=== PATIENT | female | born 1980 | race Caucasian/White ===

== ENCOUNTER 2020-03-26 10:28 | Outpatient (CLI) | payer BC, SELFPAY ==
--- NOTE | ~2020-03-26 | MM_ITS ---
EXAMINATION: MM screening debbi BI w harish HISTORY: Screening mammogram TECHNIQUE: Craniocaudal and mediolateral oblique 3-D tomosynthesis images were obtained and synthetic 2-D images were generated. Bilateral rotated lateral cc views. CAD analysis was submitted and interp reted. COMPARISON: 10/27/2017 bilateral diagnostic digital mammogram and bilateral complete breast ultrasound BREAST PARENCHYMAL COMPOSITION: The breasts are extremely dense, which lowers the sensitivity of mamm ography. FINDINGS: Bilateral benign appearing axillary tail lymph nodes are noted. There is no evidence of alexys picious mass, calcification, or architectural distortion to suggest malignancy in either breast. Ther e has been no suspicious interval change. IMPRESSION: 1. No mammographic evidence of malignancy. 2. Recommend routine screening mammography in one year. BI-RADS Category 2: Benign finding(s). Reviewed, dictated and finalized at location A.
== END 2020-03-26 10:29 | disposition home or self-care (01) ==
LOC: ANHIMG 10:31
PROVIDERS: PCP Physician Assistant; Visit Provider Nurse Practitioner
DX: Z12.31 Encounter for screening mammogram for malignant neoplasm of breast (principal)
CPT/HCPCS: 77063; 77067

== ENCOUNTER 2021-04-08 09:03 | Outpatient (CLI) | payer BC, SELFPAY ==
--- NOTE | ~2021-04-08 | MM_ITS ---
EXAMINATION: MM screening debbi BI w harish HISTORY: Screening TECHNIQUE: Craniocaudal and mediolateral oblique 3-D tomosynthesis images were obtained and synthetic 2-D images were generated. CAD analysis was submitted and interpreted. COMPARISON: Comparison to multiple prior studies sequentially, with oldest reviewed study dated 03/2018. BREAST PARENCHYMAL COMPOSITION: The breasts are extremely dense, which lowers the sensitivity of mamm ography. FINDINGS: There is no evidence of suspicious mass, calcification, or architectural distortion to sugg est malignancy in either breast. There has been no suspicious interval change. IMPRESSION: 1. No mammographic evidence of malignancy. 2. Recommend routine screening mammography in one year. BI-RADS Category 1: Negative Reviewed, dictated and finalized at location A.
== END 2021-04-08 09:04 | disposition home or self-care (01) ==
LOC: ANHIMG 09:06
PROVIDERS: PCP Physician Assistant; Visit Provider Nurse Practitioner
DX: Z12.31 Encounter for screening mammogram for malignant neoplasm of breast (principal)
CPT/HCPCS: 77063; 77067

== ENCOUNTER 2022-05-19 09:29 | Outpatient (CLI) | payer BC, SELFPAY ==
--- NOTE | ~2022-05-19 | MM_ITS ---
EXAMINATION: MM screening debbi BI w harish HISTORY: Screening mammogram TECHNIQUE: Craniocaudal and mediolateral oblique 3-D tomosynthesis images were obtained and synthetic 2-D images were generated. Bilateral rotated lateral CC views. CAD analysis was submitted and interp reted. COMPARISON: 04/08/2021, 03/26/2020 bilateral screening mammogram examinations / bilateral diagnostic mammogram Bilateral complete breast ultrasound BREAST PARENCHYMAL COMPOSITION: The breasts are extremely dense, which lowers the sensitivity of mamm ography. FINDINGS: There is no evidence of suspicious mass, calcification, or architectural distortion to sugg est malignancy in either breast. There has been no suspicious interval change. IMPRESSION: 1. No mammographic evidence of malignancy. 2. Recommend routine screening mammography in one year. BI-RADS Category 1: Negative Reviewed, dictated and finalized at location A. UNITY REINVESTMENT ACT OFFICER
== END 2022-05-19 09:30 | disposition home or self-care (01) ==
PROVIDERS: PCP Physician Assistant; Visit Provider Nurse Practitioner
DX: Z12.31 Encounter for screening mammogram for malignant neoplasm of breast (principal)
CPT/HCPCS: 77063; 77067

== ENCOUNTER → 2022-05-24 08:45 | Outpatient (CLI) | payer BC, SELFPAY ==
--- NOTE | ~2022-05-24 | US_ITS ---
US abdomen complete DATE: 05/24/2022 09:08 INDICATION: Abdominal pain TECHNIQUE: Real-time and Doppler evaluation of the complete abdomen COMPARISON: None FINDINGS: Abdominal aorta is of normal caliber. Inferior vena cava is unremarkable. Normal splenic size. No pancreatic mass lesion or pancreatic duct dilatation. No gallstones or gallbladder wall thickening or abnormal pericholecystic fluid collection. Negative s onographic Frias's sign. The common bile duct measures 4.9 mm, normal. No hepatic space-occupying mass lesion. Normal hepatopedal portal venous flow direction. No pancreati c mass lesion or ductal dilatation. No renal mass lesion or hydronephrosis. IMPRESSION: No significant abnormality Reviewed, dictated and finalized at Location A. Reviewed, dictated and finalized at location A. TRONIC SYSTEM ENGINEER IMPRESSION: No significant abnormality
== END ==
PROVIDERS: PCP Physician Assistant; Visit Provider Physician Assistant
DX: R10.84 Generalized abdominal pain (principal)
CPT/HCPCS: 76700

== ENCOUNTER 2022-07-27 12:27 | Outpatient (CLI) | payer BC, SELFPAY ==
--- NOTE | ~2022-07-27 | MR_ITS ---
EXAMINATION: MR breast BI wo/w con INDICATION: Extremely dense breast tissue on mammogram, family history of breast cancer in her matern al grandmother TECHNIQUE: Axial VIBRANT pre and dynamic post contrast, Sagittal VIBRANT post contrast, Axial T2 STIR ASSET COMPARISON: None CONTRAST: Multihance, 14 cc BREAST COMPOSITION: Extreme fibroglandular tissue FINDINGS: RIGHT BREAST: There is moderate background parenchymal enhancement. No abnormal enhancement is presen t after contrast administration. Small cysts of the right breast measure up to 5 mm. No pathologicall y enlarged axillary or internal mammary lymph nodes are identified. LEFT BREAST: There is moderate background parenchymal enhancement. No abnormal enhancement is present after contrast administration. Small cysts of the left breast measure up to 4 mm. No pathologically enlarged axillary or internal mammary lymph nodes are identified. IMPRESSION: 1. Unremarkable breast MRI. Routine screening mammography is recommended. BI-RADS Category 2: Benign finding(s). Reviewed, dictated and finalized at location A. ESTIMATING CLERK
== END 2022-07-27 12:28 | disposition home or self-care (01) ==
PROVIDERS: PCP Physician Assistant; Visit Provider Obstetrics & Gynecology Gynecology
DX: R92.2 Inconclusive mammogram (principal)
CPT/HCPCS: 77049; A9577; C8908

== ENCOUNTER 2023-07-29 08:53 | Outpatient (CLI) | payer BC, SELFPAY ==
--- NOTE | ~2023-07-29 | MM_ITS ---
EXAMINATION: MM screening debbi BI w harish HISTORY: Screening TECHNIQUE: Craniocaudal and mediolateral oblique 3-D tomosynthesis images were obtained and synthetic 2-D images were generated. CAD analysis was submitted and interpreted. COMPARISON: Comparison to multiple prior studies sequentially, with oldest reviewed study dated 03/2018. BREAST PARENCHYMAL COMPOSITION: The breasts are extremely dense, which lowers the sensitivity of mamm ography FINDINGS: There is no evidence of suspicious mass, calcification, or architectural distortion to sugg est malignancy in either breast. There has been no suspicious interval change. IMPRESSION: 1. No mammographic evidence of malignancy. 2. Recommend routine screening mammography in one year. BI-RADS Category 1: Negative Reviewed, dictated and finalized at location A. HOUSE STOCK CLERK
== END 2023-07-29 08:54 | disposition home or self-care (01) ==
LOC: ANHIMG 08:56
PROVIDERS: PCP Physician Assistant; Visit Provider Nurse Practitioner
DX: Z12.31 Encounter for screening mammogram for malignant neoplasm of breast (principal)
CPT/HCPCS: 77063; 77067

== ENCOUNTER 2024-01-02 13:18 | Outpatient (CLI) | payer BC, OTHER, SELFPAY ==
--- NOTE | ~2024-01-02 | US_ITS ---
Ultrasound of the right axilla CLINICAL HISTORY: Right axillary pain TECHNIQUE: Sonographic imaging of the right axilla at the area of pain was performed. FINDINGS: No solid lesion or lymphadenopathy seen. No fluid collection or cystic lesion identified. N o sonographic abnormality seen in the right axilla. IMPRESSION: No sonographic correlate seen for the area of pain in the right axilla. Reviewed, dictated and finalized at location .
--- NOTE | ~2024-01-02 | MM_ITS ---
EXAMINATION: MM diagnostic debbi RT w harish HISTORY: Right axillary pain TECHNIQUE: 3-D tomosynthesis images of the right breast were performed and synthetic 2-D images were generated. CAD analysis was submitted and interpreted. COMPARISON: 07/29/2023, 05/19/2022, 04/08/2021 FINDINGS: Breast parenchyma is extremely dense, which lowers the sensitivity of mammography. Parenchymal patter n of the right breast is unchanged. No suspicious mass lesion, distortion, or microcalcifications see n. No suspicious interval change. IMPRESSION: No evidence for malignancy in the right breast. Right axillary ultrasound was performed at the area of pain, which is reported separately. BI-RADS Category 1: Negative Reviewed, dictated and finalized at location M.
== END 2024-01-02 13:19 | disposition home or self-care (01) ==
PROVIDERS: PCP Physician Assistant; Visit Provider Nurse Practitioner
DX: N64.4 Mastodynia (principal); M79.601 Pain in right arm
CPT/HCPCS: 76882; 77061; 77065; G0279

== ENCOUNTER 2024-09-20 14:57 | Outpatient (CLI) | payer BC, SELFPAY ==
--- NOTE | ~2024-09-20 | MM_ITS ---
EXAMINATION: MM screening debbi BI w harish HISTORY: Screening mammogram TECHNIQUE: Craniocaudal and mediolateral oblique 3-D tomosynthesis images were obtained and synthetic 2-D images were generated. CAD analysis was submitted and interpreted. COMPARISON: 01/02/2024, 07/29/2023, 05/19/2022, 04/08/2021, 03/26/2020 BREAST PARENCHYMAL COMPOSITION:Dense: The breasts are extremely dense, which lowers the sensitivity o f mammography. FINDINGS: No suspicious mass, calcification, or architectural distortion are identified in either rogelio ast to suggest malignancy. There has been no suspicious interval change. IMPRESSION: No mammographic evidence of malignancy. Recommend routine screening mammography in one year. BI-RADS Category 1: Negative Reviewed, dictated and finalized at location .
--- OUTSIDE RECORDS SUMMARY | 2024-09-20 16:47 | XMS_ITS | Data Portability ---
Author Organization [facility] Address [address] [place] [address] Care Team Providers Care Lump Maker Name Role Phone NICOLAS DELA CRUZ Primary Care Provider Unavailab le Assessment No assessment recorded. Plan of Treatment Reminders Order Date Submit Date Provider Last Modified By Organization Details Last Modified Time Details Appointments None recorde d. Lab TSH + free T4, serum 2023 024 [facility] [employer] [facility], [address] [place], [address], 4 10:11:12 lipid panel, serum [facility], [place], [address], 4 13:37:22 CMP, serum or plasma 2023 024 [facility] [employer] [facility], [place], [address], 4 13:37:33 CBC w/ auto diff 2023 024 [facility], [place], [address], 4 13:38:05 HbA1c (hemogl obin A1c), blood 2023 024 [facility], [place], [address], 4 13:37:50 Referral None recorde d. Procedures None recorde d. Surgeries None recorde d. Imaging None recorde d. Medication Orders escital opram 10 mg tablet 2023 024 [id number], [address], [place], [place], [phone], 4 16:49:58 Patient TargetsNo targets recorded. Patient Instructions Encounter Date Encounter Id Patient Instructions Last Modified By Organization Details Last Modified Time 05/29/2024 [id number] A healthy lifestyle: care instructions [email or web address] Not available 05/29/2024 16:49:47 Reason for Referral None Reported. Results Created Date Observation Date Name Description Value Unit Range Abnormal Flag Note LastModifiedBy Organization Detail LastModifiedTime Result Notes None recorded. Problems Name Problem SNOMED Code Status Onset Date Resolution Date Notes Provider Name and Address Organization Details Recorded Time Body mass index 25-29 - overweight 650356900 Active 2023 Maxim Rodrigues MA [facility], [place] - [facility] 4 16:13:24 Generalized anxiety disorder 87329145 Active 2023 BERNADINE Magana Attn: Jeannie adam,[address] [place], [address], [place] - [facility] 4 16:27:14 Long-term drug therapy Active 2023 BERNADINE Magana Attn: Jeannie adam,[address] [place], [address], [place] [facility] 4 16:27:21 Overweight 128230243 Active 2023 BERNADINE Magana Attn: Jeannie adam,[address] [facility], [place], [address], [place] [facility] 4 16:27:45 Positive screening for depression on PHQ-9 (Patient Health Questionnai re 9) 7940969295831 00 Active 2023 BERNADINE Magana Attn: Jeannie adam,[address] [facility], [place], [address], [facility] 4 21:39:43 Problem Notes None recorded. Procedures Surgical History Date Name Laterality Status Provider Name and Address Organization Details Recorded Time Tonsillectomy completed Maxim Rodrigues MA [facility] 05/29/2024 15:58:56 Imaging Results None recorded. Procedure Notes None recorded. Medical Equipment None Reported. Allergies No known drug allergies Medications Name Sig Start Date Stop Date Status Note LastModified by Organization Details LastModified Time drospirenone 3 mg-ethinyl estradiol 0.03 mg tablet Take by oral route for 28 days. active Not Available Not Available No t Available escitalopram 10 mg tablet One tab p.o. daily 024 active Not Available Not Available Not Avai lable Vitals Date Recorded Body weight Respiratory rate Body mass index (BMI) Body height Oxygen saturation Oxygen saturation in Arterial blood by Pulse oximetry Heart rate Systolic blood pressure Diastolic blood pressure Provider Name and Address Organization Details Last Updated DateTime 4 26143.7 4 g 18 /min 25.8 kg/m2 170.18 cm 97 % 97 % 94 /min 126 mm[Hg] 82 mm[Hg] Maxim Rodrigues MA [facility] 16:19:23 Date Recorded Systolic blood pressure Diastolic blood pressure Provider Name and Address Organization Details Last Updated DateTime 05/29/2024 124 mm[Hg] 90 mm[Hg] BERNADINE Magana Attn: Accounting,[address] [facility], [place], [address], [facility] 06/09/2024 21:39:08 Social History Question Answer Notes LastModified by Organizat ion Details LastModified Time Tobacco Smoking Status Former Smoker quit 20 + years ago Maxim Rodrigues MA [facility], [facility] 05/29/2024 16:15:54 Do You Have An Advance Directive? No Information not available 05/29/2024 What Is Your Level Of Alcohol Consumption? Occasional Information not available 05/29/2024 Are You Blind Or Do You Have Difficulty Seeing? No Glasses Information not available 05/29/2024 What Is Your Level Of Caffeine Consumption? Moderate Information not available 05/29/2024 In The 14 Days Before Symptom Onset, Have You Had Close Contact With A Laboratory-confir med COVID-19 While That Case Was Ill? No Information not available 05/29/2024 In The 14 Days Before Symptom Onset, Have You Had Close Contact With A Person Who Is Under Investigation For COVID-19 While That Person Was Ill? No Information not available 05/29/2024 Have You Been To An Area Known To Be High Risk For COVID-19? No Information not available 05/29/2024 Are You Currently Employed? Yes Information not available 05/29/2024 Are You Deaf Or Do You Have Serious Difficulty Hearing? No Information not available 05/29/2024 What Type Of Diet Are You Following? REGULAR Information not available 05/29/2024 Are There Any Guns Present In Your Home? No Information not available 05/29/2024 What Was The Date Of Your Most Recent Tobacco Screening? 05/29/2024 Information not available 05/29/2024 What Is Your Current Pack Years? 20-29packyear s Information not available 05/29/2024 What Is Your Relationship Status? Single Information not available 05/29/2024 Do You Use Your Seat Belt Or Car Seat Routinely? Yes Information not available 05/29/2024 Do You Have Smoke And Carbon Monoxide Detectors In Your Home? Yes Information not available 05/29/2024 How Much Tobacco Do You Smoke? No Information not available 05/29/2024 Do You Feel Stressed (tense, Restless, Nervous, Or Anxious, Or Unable To Sleep At Night)? OD8715-3 Information not available 05/29/2024 Do You Use Any Illicit Or Recreational Drugs? No Information not available 05/29/2024 Do You Use Sunscreen Routinely? Yes Information not available 05/29/2024 Has Tobacco Cessation Counseling Been Provided? No Information not available 05/29/2024 Do You Or Have You Ever Used Any Other Forms Of Tobacco Or Nicotine? No Information not available 05/29/2024 Sex: Female Functional Status Question Answer Note LastModified by Organization D etails LastModified Time Are you able to care for yourself? Yes Information n ot available 05/29/2024 What is your exercise level? None Information not available 05/29/2024 Mental Status None recorded. Family History Relationship Description Onset Age of this Age Resolved Age Notes LastModified by Organization Details LastModified Time Father Heart disease [email or web address] Not available 2023 15:59:18 Father Hypertensive disorder tcarterma Not available 2023 15:59:25 Father Hypercholest erolemia tcarterma Not available 2023 15:59:31 Mother Hypertensive disorder tcarterma Not available 2023 15:59:25 Mother Hypercholest erolemia tcarterma Not available 2023 15:59:31 Medical History Condition Response Coronary Artery Disease N Other N Atrial Fibrillation N High Blood Pressure N Depression N COPD N Blood Clots N Anxiety Disorder Y Muscle, Joint, or Bone Problems N Acid Reflux (GERD) N Cancer N Stroke N High Cholesterol N Liver Disease N Headaches N Kidney or Bladder Problems N Thyroid Problems N GI Problems N Have you had a mammogram in the last yea r? N Skin Problems N Anemia N Heart Attack ([place]) N Diabetes N Seizures/Epilepsy N Have you had a colonoscopy in the last 1 0 years? N Asthma N Allergies N Have you had a PSA blood test in the las t year? N Hepatitis N Heart Failure N Osteoporosis N Gynecological History Statement/Question Response Menses Monthly Y Duration of Flow (days) Current Control Method BCPs Date of LMP 04/24/2024 LMP Approximate Obstetrics History GPAL:G 2 P 2 0 0 2 Type Value Full Term 2 Induced 0 Spontaneous 0 Premature 0 Living 2 Total 2 Immunizations Vaccine Type Date Status Note Provider Nam e and Address Organization Details Recorded Time Influenza, MDCK, quadrivalent, PF 04/11/2023 completed Maxim Rodrigues [place] null, [place] [facility] 05/29/2024 16:16:03 Influenza, MDCK, quadrivalent, PF 04/27/2022 completed Maxim Rodrigues [place], [place] [facility] 05/29/2024 16:16:03 Influenza, MDCK, quadrivalent, PF 06/02/2019 completed Maxim Rodrigues [place], [place] [facility] 05/29/2024 16:16:03 COVID-19, mRNA, LNP-S, PF, 30 mcg/0.3 mL dose 09/11/2020 completed DAVID Shearer, [place] [facility] 05/29/2024 16:16:03 COVID-19, mRNA, LNP-S, PF, 30 mcg/0.3 mL dose 10/02/2020 completed Maxim Rodrigues [place], [place] [facility] 05/29/2024 16:16:03 COVID-19, mRNA, LNP-S, PF, 30 mcg/0.3 mL dose 04/27/2021 completed DAVID She[place] [facility] 05/29/2024 16:16:03 COVID-19, mRNA, LNP-S, bivalent, PF, 50 mcg/0.5 mL or 25mcg/0.25 mL dose 05/24/2022 completed Maxim Rodrigues [place], [place] [facility] 05/29/2024 16:16:03 COVID-19, mRNA, LNP-S, PF, abigail-sucrose, 30 mcg/0.3 mL 04/01/2023 completed Maxim Rodrigues [place] [facility] 05/29/2024 16:16:03 COVID-19, mRNA, LNP-S, PF, abigail-sucrose, 30 mcg/0.3 mL 04/23/2024 completed Maxim Rodrigues [place] [facility] 05/29/2024 16:16:03 Influenza, split virus, trivalent, PF 04/09/2024 completed Maxim Rodrig[place] [facility] 05/29/2024 16:16:03 Influenza, split virus, trivalent, PF 06/27/2015 completed Maxim Rodrig[place] [facility] 05/29/2024 16:16:03 Past Encounters Encounter ID Performer Location Encounter Start Date Encounter Closed Date Diagnosis/Indication Diagnosis SNOMED-CT Code Diagnosis ICD10 Code Diagnosis Note [id number] BERNADINE Magana [facility] [address] [place] [address] 05/29/2024 15:47:30 05/29/2024 16:51:48 Body mass index 25-29 - overweight 435883523 Z68.25 BMI is 25.8 Overweight 810169244 E66 .3 Adult heal th examination 299466220 Z00.00 Annual wellness exam complete Generalize d anxiety disorder 79868941 F41.1 Refill Lexapro 10 mg daily which is managing her anxiety well. No complaints or concerns Long-term drug therapy 713721723 Z79.891 All fasting labs were ordered Cholesterol screening 27 8100201 Z13.220 Diabetes m ellitus screening 829798127 Z13.1 Thyroid di sorder screening 222881719 Z13.29 Positive s creening for depression on PHQ-9 (Patient Health Questionnaire 9) 3395615974 96657 Z13.31 Patient scored a 10 on screening today. She is on Lexapro 10 mg daily and is pleased with the efficacy from this medication and has no additional concerns or questions, she feels stable. Health Concerns Section Related Observation LastModified by Organization Detai ls LastModified Time None Recorded Concern Status LastModified by Organization Details LastModified Time None Recorded Advance Directives Directive N: Payers Encounter Date Sequence Insurance Name Policy Number Policy Aj Covered Member ID Aj Member ID Guarantor Name 05/29/2024 1 [place]: (PPO) [id number] Dave Lopez [id number] Dave Lopez Notes Date Note Type Note Provider Name and Address Organization Details Recorded Time 05/29/2024 text/html Anxiety/Depressi on Reported bypatient.Quality: symptoms improved Severity:denies suicidal ideations; able to maintain relationships; does not interfere with activities of daily living Duration:stablizin g Context:no major life stressors Modifying Factors:medication s as directed Associated Symptoms:denies homicidal ideations; no significant weight gain; no significant weight loss; mood good; no panic; no isolation; sleeping well; appetite good; energy good; no apathy; maintaining functionality;anxi ety Patient is here for her annual wellness exam and routine labs to be ordered BERNADINE Magana Attn: Accounting,[address], [place], [address], [facility] 06/09/2024 21:40:01 OBGyn Episode No OBEpisode recorded.
--- OUTSIDE RECORDS SUMMARY | 2024-09-20 16:48 | XMS_ITS | Patient Health Summary ---
Author Organization [facility] Address [address] [place] [address] Care Team Providers Care Cane Piler Name Role Phone Unavailable Primary Care Provider Unavailabl e Note from [facility],non-owned Affiliates and Associated Physician Practices is amultiple site organization consisting of ambulatory clinics and hospital sitesin [place], [place], [place] and [place]. This disclosure is being madepursuant to the Care Everywhere program and may not contain all information available regarding this patient. Last updated 18.[facility] Spreedly Social History Tobacco Use Types Packs/Day Years Used Date Smoking Tobacco: Never Assessed Sex and Gender Information Value Date Recorded Sex Assigned at Not on file Gender Identity Not on file Sexual Orientation Not on file Procedures * DERMATOPATHOLOGY(Performed 08/13/2024) Results * DERMATOPATHOLOGY (08/13/2024 9:40 AM DIGITAL SALES PLANNER) Case Report Dermatopathology Report Case: [id number] Authorizing Provider: Henny Mitchell DO Collected: 08/13/2024 09:40 AM Ordering Location: [facility] - Received: 08/13/2024 04:10 PM DermPath Lab Pathologist: Soledad Guzman MD Specimen: Skin, right chest 4:52 PM DIGITAL SALES PLANNER DERMATOPATHOLOGY LABORATORY Final Diagnosis Specimen A. SKIN, right chest: BASAL CELL CARCINOMA, NODULAR TYPE (C44.519) 4:52 PM [employer] SALES [employer]NER DERMATOPATHOLOGY LABORATORY Clinical History LPLK R/O BCC 4:52 PM DIGITAL SALES PLANNER DERMATOPATHOLOGY LABORATORY Gross Description Specimen A: Received is one formalin filled container labeled with the patient's name and designated right chest. The specimen consists of a shave biopsy measuring 4x3x1 mm. Jar 0. 4:52 PM [facility] DERMATOPATHOLOGY LABORATORY Microscopic Description Specimen A. SKIN, right chest: Within the dermis there are aggregates of basaloid cells with a high nuclear to cytoplasmic ratio and peripheral palisading. 4:52 PM [facility] DERMATOPATHOLOGY LABORATORY Disclaimer An external and internal positive and negative controls are appropriate for the histochemical, immunohistochemical and immunofluorescence stain(s) in this case (if any), except where stated explicitly. The performance characteristics of the stain(s) cited in this report were developed and its performance characteristic determined by the Dermatopathology Laboratory at [facility], directed by Dr. Kathy Boyd. These tests need not be, and therefore are not, approved by the [place] Food and Drug Administration. The tests are used for clinical purposes. Billing Codes Specimen Charges Stain Charges 24861 1 4:52 PM [facility] DERMATOPATHOLOGY LABORATORY Embedded Images 4:52 PM [facility] DERMATOPATHOLOGY LABORATORY Pathology/Cytolo gy TISSUE SPECIMEN FROM SKIN / Unknown 08/13/2024 9:40 AM DIGITAL SALES PLANNER 08/13/2024 4:10 PM [facility] Henny Mitchell DO LAB - PATHOLOGY/C YTOLOGY ORDERABLES DERMATOPATHOLOGY LABORATORY [facility] - Department of Dermatology [facility] Medicine [address] [place] [address], [address] [phone]
--- OUTSIDE RECORDS SUMMARY | 2024-09-20 16:48 | XMS_ITS | Clinical Summary ---
Author Organization [facility] Address [address] [address] Phone Care Team Providers Care Conference Services Coordinator Name Role Phone Nanette Sales Primary Care Pr ovider Allergies No known active allergies Medications escitalopram (LEXAPRO) 10 mg tablet TK 1 T PO HS 01/11/2020 Active Rosario 3-0.03 mg per tablet TK 1 T PO QD 01/06/2020 Active albuterol HFA (PROVENTIL HFA,VENTOLIN HFA,PROAIR HFA) 90 mcg/actuation inhaler Inhale 2 puffs every 6 (six) hours as needed Active SUMAtriptan (IMITREX) 100 mg tablet Take 100 mg by mouth once as needed Active cetirizine (ZyrTEC) 10 mg tablet Take 10 mg by mouth daily Active Active Problems Problem Noted Date Diagnosed Date 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 (10/13/2016): Erythema Nodosum Splenomegaly 11/24/2013 Overview (10/13/2016): Splenomegaly Atopic rhinitis 11/24/2013 Overview (10/13/2016): ALLERGIC RHINITIS NOS Arthralgia of shoulder 11/24/2013 Overview (10/13/2016): JOINT PAIN-SHLDER History of substance abuse 11/24/2013 Overview (10/13/2016): HISTORY OF TOBACCO USE 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 11/24/2013 Overview (10/13/2016): SYST RHEUM ARTHRITIS NEC History of surgical procedure 11/24/2013 Overview (10/13/2016): S/P TONSILLECTOMY Depression 11/24/2013 Overview (10/13/2016): DEPRESSIVE DISORDER NEC 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 Overview (10/16/2016): JUV RHEUM ARTHRITIS NOS Immunizations Immunization Administration Dates Next Due Influenza, Split 04/10/2010 Influenza, Trivalent, IM (MDV) 05/08/2007 Surgical History Surgery Date Site/Laterality Comments TONSILLECTOMY/ADENOIDECTOMY SACROCOCCYGEAL ULCER REMOVAL Medical History Medical History Date Comments Hx Other Medical Still's disease Hx Other Medical HPV Family History Medical History Relation Name Comments Heart attack Father Hypertension Father Hypertension Mother Irritable bowel syndrome Mother Irr itable bowel disease; Relation Name Status Comments Father Mother Alive Social History Tobacco Use Types Packs/Day Years Used Date Smoking Tobacco: Never Smokeless Tobacco: Never Tobacco Cessation:Counseling Given: No Alcohol Use Standard Drinks/Week Comments Yes 0 (1 standard drink = 0.6 oz pur e alcohol) Comments Unknown Sex and Gender Information Value Date Recorded Sex Assigned at Not on file Legal Sex Female 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 PLAYGROUND WORKER Gender Identity Not on file Sexual Orientation Not on file 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 Not on file Not on file Obstetrics History Last Filed Vital Signs Vital Sign Reading Time Taken Comments Blood Pressure 123/82 07/22/2021 9:33 AM PLAYGROUND WORKER Pulse 82 07/22/2021 9:33 AM PLAYGROUND WORKER Temperature 37.3 C (99.1 F) 07/22/2021 9:33 AM PLAYGROUND WORKER Respiratory Rate 14 07/22/2021 9:33 AM PLAYGROUND WORKER Oxygen Saturation 98% 07/22/2021 9:33 AM PLAYGROUND WORKER Inhaled Oxygen Concentration - - Weight 71.7 kg (158 lb) 07/22/2021 9:33 AM PLAYGROUND WORKER Height 172.7 cm (5' 7.99 ) 07/22/2021 9:[address] Body Mass Index 24.03 07/22/2021 9:33 AM PLAYGROUND WORKER Plan of Treatment Not on file Insurance [employer] [place] [employer] [place] Care Teams Conference Services Coordinator Relationship Specialty Start Date End Date Nanette Sales PA PCP - General Physician Pompom Maker 01/30/20
--- OUTSIDE RECORDS SUMMARY | 2024-09-20 16:48 | XMS_ITS | Clinical Summary ---
Author Organization [facility] Address [address] [place] [address] Care Team Providers Care Forging Machine Hand Name Role Phone Unavailable Primary Care Provider Unavailabl e Source Comments [facility],non-owned Affiliates and Associated Physician Practices is amultiple site organization consisting of ambulatory clinics and hospital sitesin [place], [place], [place] and [place]. This disclosure is being madepursuant to the Care Everywhere program and may not contain all information available regarding this patient. Last updated 18.[facility] Encounters Date Type Department Care Team Description 08/13/2024 Lab Requisition [facility] - DermPath Lab [address] [facility] [place] [id number] Henny Mitchell DO from Last 3 Months Social History Tobacco Use Types Packs/Day Years Used Date Smoking Tobacco: Never Assessed Sex and Gender Information Value Date Recorded Sex Assigned at Not on file Gender Identity Not on file Sexual Orientation Not on file Plan of Treatment Health Maintenance Due Date Last Done Comments LIPID TESTING 1979 MAMMOGRAM 1979 PAP SMEAR 1979 HIV SCREENING 12/30/1994 HEPATITIS C SCREENING 12/26/1997 DTAP/TDAP/TD VACCINES (1 - Tdap) 12/30/1998 HEPATITIS B VACCINE (1 of 3 - 19+ 3-dose series) 12/30/1998 COVID-19 VACCINE ( - 2023-2 5 season) 2024 INFLUENZA VACCINE (#1) 2024 DEPRESSION SCREENING 07/11/2024 ZOSTER VACCINE (1 of 2) 12/30/2029 HIB VACCINE Aged Out No longer eligi ble based on patient's age to complete this topic HPV VACCINE Aged Out No longer eligi ble based on patient's age to complete this topic MENINGOCOCCAL (Group B) VACC INE SHARED DECISION-MAKING Aged Out No longer eligibl e based on patient's age to complete this topic MENINGOCOCCAL GROUPS A/C/Y/W VACCINE Aged Out No longer eligible b ased on patient's age to complete this topic PNEUMOCOCCAL VACCINE Aged Out No long er eligible based on patient's age to complete this topic Procedures Procedure Name Priority Date/Time Associated Diagnosis Comments DERMATOPATHOLOGY Routine 08/13/2024 9:40 AM ROUTE SALES MANAGER from Last 3 Months Results * DERMATOPATHOLOGY (08/13/2024 9:40 AM ROUTE SALES MANAGER) Case Report Dermatopathology Report Case: [id number] Authorizing Provider: Henny Mitchell DO Collected: 08/13/2024 09:40 AM Ordering Location: [facility] - Received: 08/13/2024 04:10 PM DermPath Lab Pathologist: Soledad Guzman MD Specimen: Skin, right chest 4:52 PM ROUTE SALES MANAGER DERMATOPATHOLOGY LABORATORY Final Diagnosis Specimen A. SKIN, right chest: BASAL CELL CARCINOMA, NODULAR TYPE (C44.519) 4:52 PM ROUTE SALES MANAGER DERMATOPATHOLOGY LABORATORY Clinical History LPLK R/O BCC 4:52 PM ROUTE SALES MANAGER DERMATOPATHOLOGY LABORATORY Gross Description Specimen A: Received is one formalin filled container labeled with the patient's name and designated right chest. The specimen consists of a shave biopsy measuring 4x3x1 mm. Jar 0. 4:52 PM ROUTE SALES MANAGER DERMATOPATHOLOGY LABORATORY Microscopic Description Specimen A. SKIN, right chest: Within the dermis there are aggregates of basaloid cells with a high nuclear to cytoplasmic ratio and peripheral palisading. 4:52 PM ROUTE SALES MANAGER DERMATOPATHOLOGY LABORATORY Disclaimer An external and internal positive and negative controls are appropriate for the histochemical, immunohistochemical and immunofluorescence stain(s) in this case (if any), except where stated explicitly. The performance characteristics of the stain(s) cited in this report were developed and its performance characteristic determined by the Dermatopathology Laboratory at [facility], directed by Dr. Kathy Boyd. These tests need not be, and therefore are not, approved by the [place] Food and Drug Administration. The tests are used for clinical purposes. Billing Codes Specimen Charges Stain Charges 33470 1 5 4:52 PM ROUTE SALES MANAGER DERMATOPATHOLOGY LABORATORY Embedded Images 5 4:52 PM ROUTE SALES MANAGER DERMATOPATHOLOGY LABORATORY Pathology/Cytolo gy TISSUE SPECIMEN FROM SKIN / Unknown 08/13/2024 9:40 AM ROUTE SALES MANAGER 08/13/2024 4:10 PM ROUTE SALES MANAGER Henny Mitchell DO LAB - PATHOLOGY/C YTOLOGY ORDERABLES DERMATOPATHOLOGY LABORATORY [facility] - Department of Dermatology [facility] Medicine [address] [place] [address], [address] [phone] from Last 3 Months
--- OUTSIDE RECORDS SUMMARY | 2024-09-20 16:48 | XMS_ITS | Encounter Summary ---
Author Organization [facility] Address [address] [place] [address] Care Team Providers Care Buckle Sorter Name Role Phone Unavailable Primary Care Provider Unavailabl e Encounter Details Date Type Department Care Team (Late st Contact Info) Description 08/13/2024 Lab Requisition [facility] - DermPath Lab [address] [facility] [place] [address] Henny Mitchell DO [address] [facility] [address] [place] [address] Social History Tobacco Use Types Packs/Day Years Used Date Smoking Tobacco: Never Assessed Sex and Gender Information Value Date Recorded Sex Assigned at Not on file Gender Identity Not on file Sexual Orientation Not on file documented as of this encounter Plan of Treatment Not on file documented as of this encounter Procedures Procedure Name Priority Date/Time Associated Diagnosis Comments DERMATOPATHOLOGY Routine 08/13/2024 9:40 AM EVENT DECORATOR documented in this encounter Results * DERMATOPATHOLOGY (08/13/2024 9:40 AM EVENT DECORATOR) Case Report Dermatopathology Report Case: [id number] Authorizing Provider: Henny Mitchell DO Collected: 08/13/2024 09:40 AM Ordering Location: [facility] Physician [facility] - Received: 08/13/2024 04:10 PM DermPath Lab Pathologist: Soledad Guzman MD Specimen: Skin, right chest 4:52 PM EVENT DECORATOR DERMATOPATHOLOGY LABORATORY Final Diagnosis Specimen A. SKIN, right chest: BASAL CELL CARCINOMA, NODULAR TYPE (C44.519) 4:52 PM EVENT DECORATOR DERMATOPATHOLOGY LABORATORY Clinical History LPLK R/O BCC 4:52 PM EVENT DECORATOR DERMATOPATHOLOGY LABORATORY Gross Description Specimen A: Received is one formalin filled container labeled with the patient's name and designated right chest. The specimen consists of a shave biopsy measuring 4x3x1 mm. Jar 0. 4:52 PM [facility] DERMATOPATHOLOGY LABORATORY Microscopic Description Specimen A. SKIN, right chest: Within the dermis there are aggregates of basaloid cells with a high nuclear to cytoplasmic ratio and peripheral palisading. 4:52 PM [facility] DERMATOPATHOLOGY LABORATORY Disclaimer An external and internal positive and negative controls are appropriate for the histochemical, immunohistochemical and immunofluorescence stain(s) in this case (if any), except where stated explicitly. The performance characteristics of the stain(s) cited in this report were developed and its performance characteristic determined by the Dermatopathology Laboratory at [facility], directed by Dr. Kathy Boyd. These tests need not be, and therefore are not, approved by the [place] Food and Drug Administration. The tests are used for clinical purposes. Billing Codes Specimen Charges Stain Charges 89363 1 4:52 PM [facility] DERMATOPATHOLOGY LABORATORY Embedded Images 4:52 PM [facility] DERMATOPATHOLOGY LABORATORY Pathology/Cytolo gy TISSUE SPECIMEN FROM SKIN / Unknown 08/13/2024 9:40 AM EVENT DECORATOR 08/13/2024 4:10 PM [facility] Henny Mitchell DO LAB - PATHOLOGY/C YTOLOGY ORDERABLES DERMATOPATHOLOGY LABORATORY [facility] - Department of Dermatology [address], [address] [phone] documented in this encounter Visit Diagnoses Not on filedocumented in this encounter
--- OUTSIDE RECORDS SUMMARY | 2024-09-20 16:48 | XMS_ITS | Referral Summary ---
Author Organization [facility] Address [address] [address] Phone Care Team Providers Care Manager Employee Relations Name Role Phone Nanette Sales Primary Care [...] Split 04/10/2010 Influenza, Trivalent, IM (MDV) 05/08/2007 Social History Tobacco Use Types Packs/Day Years Used Date Smoking Tobacco: Never Smokeless Tobacco: Never Tobacco Cessation:Counseling Given: No Alcohol Use Standard Drinks/Week Comments Yes 0 (1 standard drink = 0.6 oz pur e alcohol) Comments Unknown Sex and Gender Information Value Date Recorded Sex Assigned at Not on file Legal Sex Female 11:33 PM FOUNDER & CEO Gender Identity Not on file Sexual Orientation Not on file 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 Not on file Not on file Last Filed Vital Signs Vital Sign Reading Time Taken Comments Blood Pressure 123/82 07/22/2021 9:33 AM FOUNDER & CEO Pulse 82 07/22/2021 9:33 AM FOUNDER & CEO Temperature 37.3 C (99.1 F) 07/22/2021 9:33 AM FOUNDER & CEO Respiratory Rate 14 07/22/2021 9:33 AM FOUNDER & CEO Oxygen Saturation 98% 07/22/2021 9:33 AM FOUNDER & CEO Inhaled Oxygen Concentration - - Weight 71.7 kg (158 lb) 07/22/2021 9:33 AM FOUNDER & CEO Height 172.7 cm (5' 7.99 ) 07/22/2021 9:33 AM CS T Body Mass Index 24.03 07/22/2021 9:33 AM FOUNDER & CEO Plan of Treatment Not on file Insurance [employer] [place] [employer] [place] Care Teams Manager Employee Relations Relationship Specialty Start Date End Date Nanette Sales PA PCP - General Physician Lawyer Criminal 01/30/20
--- OUTSIDE RECORDS SUMMARY | 2024-09-20 16:48 | XMS_ITS | Referral Summary ---
Author Organization [facility] Address [address] [place] [address] Care Team Providers Care Emergency Medical Dispatcher Name Role Phone Unavailable Primary Care Provider Unavailabl e Source Comments [facility],non-owned Affiliates and Associated Physician Practices is amultiple site organization consisting of ambulatory clinics and hospital sitesin [place], [place], [place] and [place]. This disclosure is being madepursuant to the Care Everywhere program and may not contain all information available regarding this patient. Last updated 18.[facility] Encounters Date Type Department Care Team Description 08/13/2024 Lab Requisition [facility] - DermPath Lab [address] [facility] [place] [id number] Henny Mitchell DO from Last 3 Months Social History Tobacco Use Types Packs/Day Years Used Date Smoking Tobacco: Never Assessed Sex and Gender Information Value Date Recorded Sex Assigned at Not on file Gender Identity Not on file Sexual Orientation Not on file Plan of Treatment Not on file Procedures Procedure Name Priority Date/Time Associated Diagnosis Comments DERMATOPATHOLOGY Routine 08/13/2024 9:40 AM WOUND CARE PHYSICIAN from Last 3 Months Results * DERMATOPATHOLOGY (08/13/2024 9:40 AM WOUND CARE PHYSICIAN) Case Report Dermatopathology Report Case: [id number] Authorizing Provider: Henny Mitchell DO Collected: 08/13/2024 09:40 AM Ordering Location: [facility] - Received: 08/13/2024 04:10 PM DermPath Lab Pathologist: Soledad Guzman MD Specimen: Skin, right chest 4:52 PM WOUND CARE PHYSICIAN DERMATOPATHOLOGY LABORATORY Final Diagnosis Specimen A. SKIN, right chest: BASAL CELL CARCINOMA, NODULAR TYPE (C44.519) 4:52 PM WOUND CARE PHYSICIAN DERMATOPATHOLOGY LABORATORY Clinical History LPLK R/O BCC 4:52 PM [facility] DERMATOPATHOLOGY LABORATORY Gross Description Specimen A: Received is one formalin filled container labeled with the patient's name and designated right chest. The specimen consists of a shave biopsy measuring 4x3x1 mm. Jar 0. 4:52 PM [facility] DERMATOPATHOLOGY LABORATORY Microscopic Description Specimen A. SKIN, right chest: Within the dermis there are aggregates of basaloid cells with a high nuclear to cytoplasmic ratio and peripheral palisading. 4:52 PM [facility] DERMATOPATHOLOGY LABORATORY Disclaimer An external and internal positive and negative controls are appropriate for the histochemical, immunohistochemical and immunofluorescence stain(s) in this case (if any), except where stated explicitly. The performance characteristics of the stain(s) cited in this report were developed and its performance characteristic determined by the Dermatopathology Laboratory at [facility], directed by Dr. Kathy Boyd. These tests need not be, and therefore are not, approved by the [place] Food and Drug Administration. The tests are used for clinical purposes. Billing Codes Specimen Charges Stain Charges 25801 1 4:52 PM WOUND CARE PHYSICIAN DERMATOPATHOLOGY LABORATORY Embedded Images 4:52 PM [facility] DERMATOPATHOLOGY LABORATORY Pathology/Cytolo gy TISSUE SPECIMEN FROM SKIN / Unknown 08/13/2024 9:40 AM WOUND CARE PHYSICIAN 08/13/2024 4:10 PM WOUND CARE PHYSICIAN Henny Mitchell DO LAB - PATHOLOGY/C YTOLOGY ORDERABLES DERMATOPATHOLOGY LABORATORY [facility] - Department of Dermatology [facility] Medicine [address] [place] [address], [address] [place] [address], [facility] [phone] from Last 3 Months
== END 2024-09-20 14:58 | disposition home or self-care (01) ==
LOC: ANHIMG 14:57
PROVIDERS: PCP Physician Assistant; Visit Provider Nurse Practitioner
DX: Z12.31 Encounter for screening mammogram for malignant neoplasm of breast (principal)
CPT/HCPCS: 77063; 77067